=== PATIENT | female | born 1960 | race Caucasian/White ===

== ENCOUNTER → 2018-06-23 08:51 | Outpatient (CLI) | payer OTHER, SELFPAY ==
[2018-06-23 09:52] LABS: Hematocrit 39.5 % (36-46); Hemoglobin 13.3 g/dL (12.0-16.0); Mean Corpuscular HGB Conc 33.8 % (30-36); Mean Corpuscular Hemoglobin 31.8 PG (26-34); Mean Corpuscular Volume 94.3 fL (80-100); Platelet Count 404 X10^3/uL (150-400); Red Blood Cell Count 4.19 X10^6/uL (4.0-5.2); Red Cell Distribution Width 12.9 % (11.6-14.8); White Blood Cell Count 5.4 X10^3/uL (4.5-11.0)
[2018-06-23 10:05] LABS: Neutrophils Absolute Manual 2322 /uL (3000-5900); RBC Morphology Normal Morphology; Total Cells Counted 100
[2018-06-23 11:46] LABS: HEMOLYSIS < 15 (0-50); Iron 117 ug/dL (37-170)
[2018-06-23 11:58] LABS: Percent Iron Saturation 38 % (15-50); Total Iron Binding Capacity 308 ug/dL (265-497); Transferrin 243 mg/dL (206-381)
[2018-06-26 14:39] LABS: Fecal Immunochemical Test NOT DETECTED
== END ==
PROVIDERS: PCP Family Medicine; Visit Provider Family Medicine
DX: D64.9 Anemia, unspecified (principal); Z78.9 Other specified health status
CPT/HCPCS: 36415; 82274; 83540; 83550; 85025

== ENCOUNTER → 2018-10-09 09:36 | Outpatient (CLI) | payer OTHER, SELFPAY ==
[2018-10-09 10:55] LABS: Cholesterol 172 mg/dL (140-199); Glucose 82 mg/dL (70-100); HDL Cholesterol 37 mg/dL (40-60); LDL Cholesterol Calculated 119 mg/dL (<100); Triglycerides 78 mg/dL (35-150)
== END ==
PROVIDERS: PCP Family Medicine; Visit Provider Family Medicine
DX: Z13.220 Encounter for screening for lipoid disorders (principal); Z13.1 Encounter for screening for diabetes mellitus
CPT/HCPCS: 36415; 80061; 82947

== ENCOUNTER → 2019-01-28 13:18 | Outpatient (CLI) | payer OTHER, SELFPAY ==
--- NOTE | 2019-01-28 13:19 | DI.RAD.S_ITS ---
PROCEDURE: XR KNEE RT 3V INDICATIONS: medial knee pain TECHNIQUE: 3 views of the knee were acquired. COMPARISON: None. FINDINGS: Bones: No fractures or dislocations. No suspicious bony lesions. There is mild tricompartmental knee joint degeneration. Soft tissues: No joint effusion. No suspicious soft tissue calcifications. IMPRESSION: Mild degenerative joint disease. Dictated by: Bhavani Ho M.D. on 01/28/2019 at 17:29 Approved by: Bhavani Ho M.D. on 01/28/2019 at 17:30
--- NOTE | 2019-01-28 13:19 | DI.RAD.S_ITS ---
PROCEDURE: XR HAND LT MIN 3V INDICATIONS: DIP > PIP pain TECHNIQUE: 3 views of the hand(s) acquired. COMPARISON: None. FINDINGS: Bones: No fractures or dislocations. Carpal bones are normally aligned. No suspicious bony lesions. Soft tissues: No suspicious soft tissue calcifications. IMPRESSION: No trauma found. Minimal degenerative osteophytic thinning of the joint spaces over the distal interphalangeal joints is present. Dictated by: Jad Hdz M.D. on 01/28/2019 at 14:36 Approved by: Jad Hdz M.D. on 01/28/2019 at 14:36
--- NOTE | 2019-01-28 13:19 | DI.RAD.S_ITS ---
PROCEDURE: XR HAND RT MIN 3V INDICATIONS: DIP>PIP pain TECHNIQUE: 3 views of the hand(s) acquired. COMPARISON: [facility] [place], [place], XR FOOT 3+ VIEWS LEFT, 09/10/2018, 15:58. FINDINGS: Bones: No fractures or dislocations. Carpal bones are normally aligned. No suspicious bony lesions. Minimal diffuse interphalangeal joint narrowing. No erosions. Soft tissues: No suspicious soft tissue calcifications. IMPRESSION: Minimal diffuse interphalangeal joint degeneration. Dictated by: Luis NAYAK Interpreted: Jad Hdz MD on 01/28/2019 at 15:55 Approved by: Jad Hdz M.D. on 01/28/2019 at 20:16
== END ==
PROVIDERS: PCP Family Medicine; Visit Provider Family Medicine
DX: M19.041 Primary osteoarthritis, right hand (principal); M17.11 Unilateral primary osteoarthritis, right knee; M19.042 Primary osteoarthritis, left hand; M25.561 Pain in right knee
CPT/HCPCS: 73130; 73562

== ENCOUNTER → 2019-09-10 16:14 | Outpatient (CLI) | payer OTHER, SELFPAY ==
--- NOTE | 2019-09-10 16:18 | DI.US.S_ITS ---
PROCEDURE: US ABDOMEN COMPLETE INDICATIONS: ABD PAIN TECHNIQUE: Real-time scanning was performed of the abdominal and retroperitoneal organs, with image documentation. COMPARISON: None. FINDINGS: Liver: Liver is normal in size and homogeneous in echotexture. Gallbladder: Gallbladder within normal limits Biliary ducts: Intrahepatic bile ducts are non-dilated. Extrahepatic bile duct caliber measures 4 mm. Normal is 6-7 mm or less in diameter, or 10 mm or less post-cholecystectomy. Pancreas: Visualized portions of the pancreas are sonographically normal. However, the head and tail are not well-seen Spleen: Spleen is normal in size and homogeneous in echotexture. Kidneys: Kidneys are normal in size and echotexture. Right kidney measures 10.2 cm long; left kidney measures 11.2 cm long. No hydronephrosis or nephrolithiasis. No solid masses. Aorta: Visualized aorta is normal in caliber at less than 3 cm. in the mid aorta is not well-visualized Iliacs: Not well-visualized sonographically IVC: Intrahepatic inferior vena cava is patent. Miscellaneous: No free abdominal fluid. IMPRESSION: Normal appearance of the gallbladder. Grossly unremarkable examination as above Dictated by: Negrito Martinez M.D. on 09/10/2019 at 17:54 Approved by: Negrito Martinez M.D. on 09/10/2019 at 17:55
== END ==
PROVIDERS: PCP Family Medicine; Referring Provider Family Medicine; Visit Provider Family Medicine
DX: R10.11 Right upper quadrant pain (principal)
CPT/HCPCS: 76700

== ENCOUNTER → 2019-12-24 15:09 | Outpatient (CLI) | payer OTHER, SELFPAY ==
[2019-12-25 10:20] LABS: SARS CoV19 IgG Negative (Negative)
[2019-12-26 14:43] LABS: SARS CoV19 IgA Negative (Negative)
[2019-12-27 14:40] LABS: SARS-CoV19- IgM Negative (Negative)
== END ==
PROVIDERS: PCP Family Medicine; Referring Provider Family Medicine; Visit Provider Family Medicine
DX: Z11.59 Encounter for screening for other viral diseases (principal)
CPT/HCPCS: 36415; 86769

== ENCOUNTER → 2022-07-05 09:01 | Outpatient (CLI) | payer OTHER, SELFPAY ==
[2022-07-05 10:55] LABS: Cholesterol 234 mg/dL (140-199); Glucose 98 mg/dL (80-110); HDL Cholesterol 43 mg/dL (40-60); LDL Cholesterol Calculated 173 mg/dL (<100); Triglycerides 91 mg/dL (35-150)
== END ==
PROVIDERS: PCP Family Medicine; Referring Provider Family Medicine; Visit Provider Family Medicine
DX: Z13.1 Encounter for screening for diabetes mellitus (principal)
CPT/HCPCS: 36415; 80061; 82947

== ENCOUNTER → 2022-07-13 09:13 | Outpatient (CLI) | payer OTHER, SELFPAY ==
--- NOTE | 2022-07-13 09:14 | DI.MG.S_ITS ---
BILATERAL DIGITAL SCREENING MAMMOGRAM 3D/2D WITH CAD: 07/13/2022 Comparison is made to exams dated: 07/06/2018 mammogram, 01/02/2015 mammogram, and 10/08/2013 mammogram - [facility]. Both breasts are heterogeneously dense, which may obscure small masses (category c / 51-75% glandular tissue). Current study was also evaluated with a Computer Aided Detection (CAD) system. No significant masses, calcifications, or other findings are seen in either breast. There has been no significant interval change. IMPRESSION: NEGATIVE There is no mammographic evidence of malignancy. A 1 year screening mammogram is recommended. Based on the Tyrer Cuzick model (a risk assessment model) the patient's lifetime risk is 12.3% and her 10 year risk is 5.2%. According to the ACR, ACS, and NCCN guidelines, an annual breast MRI exam along with mammogram is recommended if the patient's lifetime risk is 20% or greater. This exam was interpreted at Station ID: [id number]. NOTE: For mammograms, a report in lay terms will be sent to the patient. Approximately 15% of breast malignancies will not be visualized mammographically. In the management of a palpable breast mass, a negative mammogram must not discourage biopsy of a clinically suspicious lesion. Electronically Signed By: Apolinar herrmann/jayden:07/17/2022 08:45:45 letter sent: Normal Exam ACR BI-RADS Category 1: Negative 3341F
[2022-07-15 13:37] LABS: Fecal Immunochemical Test Negative (Negative)
== END ==
PROVIDERS: PCP Family Medicine; Referring Provider Family Medicine; Visit Provider Family Medicine
DX: Z12.31 Encounter for screening mammogram for malignant neoplasm of breast (principal); Z12.11 Encounter for screening for malignant neoplasm of colon
CPT/HCPCS: 77063; 77067; 82274

== ENCOUNTER → 2022-07-30 13:04 | Outpatient (CLI) | payer OTHER, SELFPAY ==
--- NOTE | 2022-07-30 13:06 | DI.RAD.S_ITS ---
PROCEDURE: XR ELBOW RT MIN 3V INDICATIONS: R elbow pain lateral epicondyle, olecranon TECHNIQUE: 3 views of the elbow were acquired. COMPARISON: None. FINDINGS: Bones: No fractures or dislocations. No suspicious bony lesions. Soft tissues: No elbow joint effusion. No suspicious soft tissue calcifications. IMPRESSION: No visualized acute fracture or dislocation. However, if clinical concern and/or pain persist, short interval imaging followup in 7-10 days is recommended, as occult injury cannot be definitively excluded. Dictated by: Roxanne Mckinley M.D. on 07/30/2022 at 16:26 Approved by: Roxanne Mckinley M.D. on 07/30/2022 at 16:26
== END ==
PROVIDERS: PCP Family Medicine; Referring Provider Physician Assistant; Visit Provider Physician Assistant
DX: S59.901A Unspecified injury of right elbow, initial encounter (principal); M25.521 Pain in right elbow; X58.XXXA Exposure to other specified factors, initial encounter
CPT/HCPCS: 73080

== ENCOUNTER 2022-09-25 08:21 | Day surgery (SDC) | payer OTHER, SELFPAY ==
[2022-09-17 10:35] VITALS: BMI 22.9
[2022-09-25] VITALS (7 sets, daily range): BP systolic 97–132; BP diastolic 49–78; PULSE 70–90; RESP 14–23; TEMP 36–36.3; O2SAT 96–100; BMI 22.3
[2022-09-25] MEDS: LACTATED RINGERS 1,000 ML 42 ML IV (08:41)
--- NOTE | 2022-09-25 09:28 | PM.PREOP ---
Pre-operative Note Interval Note History & Physical reviewed/Exam performed by Physician: Yes Changes to H&P: No
--- NOTE | 2022-09-25 09:36 | P.HP_ITS ---
History of Present Illness History of Present Illness Date Patient Seen: 09/25/22 Time Patient Seen: 09:36 Chief complaint: SDC Narrative: 62-year-old here for an elective open umbilical repair for a small reducible symptomatic umbilical hernia. Please refer to the H and P from July 2022 for further detail. Patient History Medical History (Updated 09/17/22 @ 10:38 by Haily Quintero RN) Arthritis Asthma Eczema Elevated cholesterol Exercise induced bronchospasm Food allergy Hearing loss Heart murmur Hypoglycemia Surgical History (Updated 09/17/22 @ 10:38 by Haily Quintero RN) Hx of dilation and curettage (1990) [place] teeth removed (1978) Family & Social History Family History Father Aspiration into airway Mother Osteoarthritis of hands, bilateral Idiopathic polyneuropathy Non-melanoma skin cancer Grandmother Colon cancer Congestive heart failure Grandfather Sepsis Grandfather Myocardial infarction Prostate cancer Dementia Grandmother CVA (cerebral vascular accident) Social History: household members spouse lives independently Yes caregiver/support person No Tobacco & Substance use: Smoking Status Never smoker alcohol intake current alcohol intake frequency a few times a month Substance Use Type does not use Meds Home Medications and Allergies Home Medications Medication Instructions Recorded Confirmed Type albuterol sulfate 90 mcg/actuation 2 puff inhalation QID PRN 04/24/22 09/25/22 Rx aerosol inhaler shortness of breath or wheezing #18 grams desonide 0.05 % topical ointment 1 applic topical BID #60 grams 04/24/22 09/25/22 Rx wrist/arm splint #1 ea 08/19/22 Rx acetaminophen 325 mg capsule 650 mg PO QID PRN pain #60 caps 09/25/22 Rx (Tylenol) ibuprofen 200 mg tablet 400 mg PO Q6H #60 tabs 09/25/22 Rx tramadol 50 mg tablet 50 mg PO Q6H PRN pain #10 tabs 09/25/22 Rx Allergies Allergy/AdvReac Type Severity Reaction Status Date / Time hazelnut Allergy Mild Verified 09/25/22 08:41 Sulfa (Sulfonamide Allergy Unknown Verified 09/25/22 08:41 Antibiotics) [SULFA (SULFONAMIDE ANTIBIOTICS)] Opioids - Morphine Analogues AdvReac Mild Nausea Verified 09/25/22 08:41 Exam Vital Signs (past 8 hours): - 09/25/22 08:49 Temperature 97.4 F L Pulse Rate 90 Respiratory Rate 18 Blood Pressure 132/78 Pulse Oximetry 100 Oxygen Delivery Method Room Air Oxygen Delivery Method Room Air Narrative Exam Narrative: General adult woman alert oriented no acute distress Abdomen soft nontender nondistended. Umbilical hernia marked my initials. Assessment & Plan Assessment and plan (1) Umbilical hernia: Qualifiers: Obstruction and gangrene presence: without obstruction or gangrene Qualified Code(s): K42.9 - Umbilical hernia without obstruction or gangrene Status: Acute Assessment & Plan narrative: 62-year-old woman with a symptomatic reducible umbilical hernia here for elective open umbilical hernia repair. Overview of the operation was again discussed with the patient. Operative risks including bleeding, infection, reoccurence were discussed. Her questions have been answered and she is in agreement with this plan. Time Spent With Patient Critical Care time: I spent a total of [] minutes of critical care time on this patient's care today; this time is exclusive of procedural time.
[2022-09-25] MEDS: CEFAZOLIN 2 GM/100 ML PREMIX 100 ML IV (09:50)
--- NOTE | 2022-09-25 10:00 | SUR.OPER ---
Supine on padded OR bed, head on pillow, arms secured on padded arm boards at <90 degrees abduction, legs uncrossed, safety belt at thigh, tape over blanket over lower legs.
[2022-09-25] MEDS: BUPIVACAINE 0.25% (PF) VIAL 30 ML INJ (10:09)
--- NOTE | 2022-09-25 10:28 | PM.OP.1 ---
Operative Date/Time/Diagnoses Date of procedure: 09/25/22 Time of procedure: 10:28 Pre-op diagnosis: umbilical hernia Post-op diagnosis: same Procedure & Clinicians Procedure: open umbilical hernia repair Same procedure as scheduled: Yes Indications: symptomatic reducible umbilical hernia Surgeon: Dilan Fu Anesthesia Type: General Operative Notes Findings: 1 cm fascial defect containing omentum Estimated Blood Loss (mL): 10 Procedure in detail: Patient was brought to the operating room placed supine on the table. Bilateral lower extremity compression devices were applied. General anesthesia was induced and they were intubated with an endotracheal tube. They received 2 g of Ancef prior to skin incision. They were prepped and draped in sterile fashion. A time-out was performed. A curvilinear incision was made inferior to the umbilicus. The subcutaneous tissues were divided. The umbilical hernia was identified and the hernia sac was dissected off the umbilical skin and circumferentially off of the fascia defect. The hernia sac was sharply opened and contained viable omentum. The omentum was reduced back into the abdomen. Using blunt dissection I carefully carefully freed the hernia sac from beneath the fascia defect. The fascia defect was 1.0 cm in maximal diameter. Given the small diameter of the umbilical fascial defect no mesh was used. A figure 8 of Ethibond was used to reapproximate the fascia.The umbilical skin was tacked to the subcutaneous tissues and then the remainder of the subcutaneous tissues were reapproximated using 3 0 Vicryl. The skin closed with 4 0 Monocryl followed by the application of Dermabond. Sponge instrument count at the end of the operation was correct. Patient tolerated procedure well was extubated and transferred to postoperative care unit in stable condition. Complications: none Post-operative Condition: stable Disposition: same day surgery
== END 2022-09-25 11:08 | disposition home or self-care (01) ==
PROVIDERS: PCP Family Medicine; Referring Provider Surgery; Visit Provider Surgery
PROC: (CPT 49591; principal; 2022-09-25 09:45)
DX: K42.9 Umbilical hernia without obstruction or gangrene (principal)
CPT/HCPCS: 49591; 82962; J0690; J1100; J1885; J2405; J2704; J3010

== ENCOUNTER → 2023-01-03 10:35 | Outpatient (CLI) | payer OTHER, SELFPAY ==
[2023-01-03 11:27] LABS: Cholesterol 168 mg/dL (140-199); HDL Cholesterol 34 mg/dL (40-60); LDL Cholesterol Calculated 115 mg/dL (<100); Triglycerides 95 mg/dL (35-150)
== END ==
PROVIDERS: PCP Family Medicine; Referring Provider Family Medicine; Visit Provider Family Medicine
DX: E78.5 Hyperlipidemia, unspecified (principal)
CPT/HCPCS: 36415; 80061

== ENCOUNTER → 2023-06-24 08:22 | Outpatient (CLI) | payer OTHER, SELFPAY ==
[2023-06-24 09:20] LABS: Cholesterol 179 mg/dL (140-199); HDL Cholesterol 36 mg/dL (40-60); LDL Cholesterol Calculated 121 mg/dL (<100); Triglycerides 112 mg/dL (35-150)
== END ==
PROVIDERS: PCP Family Medicine; Referring Provider Family Medicine; Visit Provider Family Medicine
DX: E78.5 Hyperlipidemia, unspecified (principal)
CPT/HCPCS: 36415; 80061

== ENCOUNTER → 2023-08-16 08:58 | Outpatient (CLI) | payer OTHER, SELFPAY ==
--- NOTE | 2023-08-16 | DI.MG.S_ITS ---
BILATERAL DIGITAL SCREENING MAMMOGRAM 3D/2D WITH CAD: 08/16/2023 CLINICAL: Routine screening. Comparison is made to exams dated: 07/13/2022 mammogram - [facility], 07/06/2018 mammogram, and 01/02/2015 mammogram - [facility]. Both breasts are heterogeneously dense, which may obscure small masses (category c / 51-75% glandular tissue). Current study was also evaluated with a Computer Aided Detection (CAD) system. No significant masses, calcifications, or other findings are seen in either breast. There has been no significant interval change. IMPRESSION: NEGATIVE There is no mammographic evidence of malignancy. A 1 year screening mammogram is recommended. Based on the Tyrer Cuzick model (a risk assessment model) the patient's lifetime risk is 11.9% and her 10 year risk is 5.2%. According to the ACR, ACS, and NCCN guidelines, an annual breast MRI exam along with mammogram is recommended if the patient's lifetime risk is 20% or greater. This exam was interpreted at Station ID: [id number]. NOTE: For mammograms, a report in lay terms will be sent to the patient. Approximately 15% of breast malignancies will not be visualized mammographically. In the management of a palpable breast mass, a negative mammogram must not discourage biopsy of a clinically suspicious lesion. Electronically Signed By: Apolinar herrmann/jayden:08/18/2023 07:26:57 letter sent: Normal Exam ACR BI-RADS Category 1: Negative 3341F
== END ==
LOC: MAMMO 08:59
PROVIDERS: PCP Family Medicine; Referring Provider Family Medicine; Visit Provider Family Medicine
DX: Z12.31 Encounter for screening mammogram for malignant neoplasm of breast (principal); R92.333 Mammographic heterogeneous density, bilateral breasts
CPT/HCPCS: 77063; 77067

== ENCOUNTER → 2024-09-30 12:03 | Outpatient (CLI) | payer OTHER, SELFPAY ==
--- NOTE | 2024-09-30 12:08 | DI.RAD.S_ITS ---
PROCEDURE: XR DEXA AXIAL SKELETON INDICATIONS: screening osteoporosis COMPARISON: None. FINDINGS: Lumbar Spine: Bone mineral density 0.57 g/cm2, T score -4.3. Left Femoral Neck: Bone mineral density 0.55 g/cm2, T score -2.7. Left Hip: Bone mineral density 0.59 g/cm2, T score -2.9. Fracture Risk Calculation (when applicable): 10-year fracture risk of a major osteoporotic fracture 13 percent and of a hip fracture 2.9 percent. (T score greater or equal to -1.0 to: NORMAL) (T score from -1.1 to -2.4: OSTEOPENIA) (T score less than or equal to -2.5: OSTEOPOROSIS) IMPRESSION: 1. Osteoporosis of the lumbar spine. 2. Osteoporosis of the left hip and femoral neck. Follow-up guidelines as follows: Osteoporosis: Consider a repeat DEXA and Vertebral Fracture Assessment (VFA) exam in 2 years or sooner if medically necessary, to reassess this patient's status. Osteopenia: Consider a repeat DEXA in 2-3 years to reassess this patient's status, or if there is a new clinical indication. Normal: Consider a repeat DEXA in 5 years or sooner, or if there is a new clinical indication. All treatment decisions require clinical judgment and consideration of individual patient factors, including patient preferences, comorbidities, previous drug use, risk factors not captured in the FRAX model (e.g., frailty, falls, vitamin D deficiency, increased bone turnover, interval significant decline in bone density ) and possible under- or over-estimation of fracture risk by FRAX. In addition, the NOF Guide recommends that FDA-approved medical therapies be considered in postmenopausal women and men age >= 50 years with a: * Hip or vertebral (clinical or morphometric) fracture * T-score of <=-2.5 at the spine or hip * Ten-year fracture probability by FRAX of >= 3% for hip fracture or >=20% for major osteoporotic fracture. Dictated by: Shawn Cheng M.D. on 09/30/2024 at 14:11 Approved by: Shawn Cheng M.D. on 09/30/2024 at 14:13
== END ==
PROVIDERS: PCP Family Medicine; Referring Provider Family Medicine; Visit Provider Family Medicine
DX: Z13.820 Encounter for screening for osteoporosis (principal); M81.0 Age-related osteoporosis without current pathological fracture
CPT/HCPCS: 77080

== ENCOUNTER → 2024-10-13 08:17 | Outpatient (CLI) | payer OTHER, SELFPAY ==
--- NOTE | 2024-10-13 08:20 | DI.MG.S_ITS ---
MM screening mammo BI: 10/13/2024. BI-RADS: 1 CLINICAL: 64-year old female for bilateral screening mammogram. Tyrer-Cuzick lifetime risk of 7.9%. No personal or first-degree family history of breast cancer. PRIOR EXAMS 08/16/2023, 07/13/2022, 07/06/2018, 01/02/2015. MAMMOGRAPHY TECHNIQUE: 2D and 3D (tomosynthesis) digital mammographic views obtained, with additional images as needed for full coverage. Current study was also evaluated with a Computer Aided Detection (CAD) system. DENSITY C. The breasts are heterogeneously dense, which may obscure small masses. MAMMOGRAPHY FINDINGS Bilateral: No suspicious mass, asymmetry, microcalcification, or other abnormality seen. No significant change from comparison. IMPRESSION: * No evidence of malignancy. RECOMMENDATIONS Bilateral * Annual screening mammography. OVERALL ASSESSMENT CATEGORY BI-RADS-1: Negative. The [employer] recommends annual screening mammography beginning at age 40 for women with average risk of breast cancer. ELECTRONICALLY SIGNED: Tiffanie Pruitt M.D. on 10/13/2024 at 05:00:36 PM PT Interpreting Station ID: [id number]
[2024-10-13 09:42] LABS: Alanine Aminotransferase 36 IU/L (<35); Albumin 4.6 g/dL (3.5-5.0); Albumin Globulin Ratio 1.6 (1.0-2.8); Alkaline Phosphatase 78 U/L (38-126); Aspartate Aminotransferase 41 IU/L (14-36); BUN Creatinine Ratio 20.3 (6-22); Bilirubin Total 0.6 mg/dL (0.2-1.3); Blood Urea Nitrogen 15 mg/dL (7-17); Calcium 9.8 mg/dL (8.4-10.2); Carbon Dioxide 28 mmol/L (22-32); Chloride 101 mmol/L (98-107); Cholesterol 208 mg/dL (140-199); Estimated Glomerular Filt Rate > 60 mL/min (>60); Globulin 2.8 g/dL (1.7-4.1); Glucose 92 mg/dL (80-110); HDL Cholesterol 40 mg/dL (40-60); HEMOLYSIS < 15 (0-50); LDL Cholesterol Calculated 149 mg/dL (<100); Potassium 4.3 mmol/L (3.4-5.1); Sodium 138 mmol/L (137-145); Total Protein 7.4 g/dL (6.3-8.2); Triglycerides 95 mg/dL (35-150)
[2024-10-14 11:12] LABS: Fecal Immunochemical Test Negative (Negative)
== END ==
LOC: MAMMO 08:18
PROVIDERS: PCP Family Medicine; Referring Provider Family Medicine; Visit Provider Family Medicine
DX: Z12.31 Encounter for screening mammogram for malignant neoplasm of breast (principal); R92.333 Mammographic heterogeneous density, bilateral breasts; M81.0 Age-related osteoporosis without current pathological fracture; Z13.220 Encounter for screening for lipoid disorders; Z12.11 Encounter for screening for malignant neoplasm of colon
CPT/HCPCS: 36415; 77063; 77067; 80053; 80061; 82274; 82306

== ENCOUNTER → 2024-11-10 09:41 | Outpatient (CLI) | payer OTHER, SELFPAY ==
[2024-11-10 10:38] LABS: Alanine Aminotransferase 39 IU/L (<35); Albumin 4.6 g/dL (3.5-5.0); Albumin Globulin Ratio 1.8 (1.0-2.8); Alkaline Phosphatase 72 U/L (38-126); Aspartate Aminotransferase 39 IU/L (14-36); Bilirubin Total 0.5 mg/dL (0.2-1.3); Blood Urea Nitrogen 18 mg/dL (7-17); Calcium 9.7 mg/dL (8.4-10.2); Carbon Dioxide 30 mmol/L (22-32); Chloride 102 mmol/L (98-107); Estimated Glomerular Filt Rate > 60 mL/min (>60); Globulin 2.5 g/dL (1.7-4.1); Glucose 86 mg/dL (70-99); HEMOLYSIS < 15 (0-50); Potassium 4.4 mmol/L (3.4-5.1); Sodium 140 mmol/L (137-145); Total Protein 7.1 g/dL (6.3-8.2)
[2024-11-11 00:07] LABS: HBsAg Screen Negative (Negative); Hepatitis A Antibody IgM Negative (Negative); Hepatitis B Core Antibody IgM Negative (Negative); Hepatitis C Antibody Non Reactive (Non Reactive)
== END ==
PROVIDERS: PCP Family Medicine; Referring Provider Family Medicine; Visit Provider Family Medicine
DX: Z11.59 Encounter for screening for other viral diseases (principal); Z79.899 Other long term (current) drug therapy
CPT/HCPCS: 36415; 80053; 80074

== ENCOUNTER → 2024-12-30 13:41 | Outpatient (CLI) | payer OTHER, SELFPAY ==
--- NOTE | 2025-01-03 15:28 | DIET.OUTPTC ---
Dietary Outpatient Consult Consult Date:12/30/24 Assessment:? 64 y F referred to dietitian for Abnormal levels of other serum enzymes, Abnormal finding of blood chemistry, unspecified, and osteoporosis Pt wanting to review labs (cholesterol) and nutrition for osteoporosis and protein intake per day. In October started going to PT and doing weight based exercises. Strong understanding of nutrition, strong understanding finding reliable sources on internet. Non-anaphylactic reactions to tree nuts, stone fruit, and peanuts Diet Recall: B-oats with water, 1/2c berries, hemp seeds 1 tbsp, zahida crackers, 1 c coffee L-norman and cheese burritos or grazing on hummus and cracker, fruit, smoothies with yogurt D-baked potato med, salmon, 1 c broccoli (or similar kvzqkav-biky-cqr meal) Sometimes protein bar Fluids:water 64-72 oz Supplements: [employer] brand tummeric, 2 600mg calcium and vit D ?Wt: 135-140 lb?? BMI:?? UBW: Activity: Pertinent Labs: Recently went to [place] for 9 weeks and associates that with elevated chol and LDL. Usually carefully monitors sat fat and fiber intake. Doesn't go over 10 g sat fat usually. Aims for 25-30 g fiber daily. Nutrition Diagnosis:? Interventions:? Discussed and provided appropriate resources on the following: - Goals: - EER:? Monitoring/Evaluations:? F/u PRN Electronically Signed by: Keyla Hilliard Clinical Dietitian [address] [address]
--- NOTE | 2025-01-03 15:52 | DIET.OUTPTC ---
Dietary Outpatient Consult Consult Date:12/30/24 Assessment:? 64 y F referred to dietitian for Abnormal levels of other serum enzymes, Abnormal finding of blood chemistry, unspecified, and osteoporosis Pt wanting to review labs (cholesterol) and nutrition for osteoporosis and protein intake per day. Has heard needs to get 140 g protein per day. In October started going to PT and doing weight based exercises. Strong understanding of nutrition, strong understanding finding reliable sources on internet. Non-anaphylactic reactions to tree nuts, stone fruit, and peanuts Diet Recall: B-oats with water, 1/2c berries, hemp seeds 1 tbsp, zahida crackers, 1 c coffee L-norman and cheese burritos or grazing on hummus and cracker, fruit, smoothies with yogurt D-baked potato med, salmon, 1 c broccoli (or similar kvhgcxc-pore-yva meal) Sometimes protein bar [employer] [place] pal is reaching 70-90 g protein Fluids:water 64-72 oz Supplements: [employer]co brand tummeric, 2 600mg calcium and vit D ?Ht 5 ft 5 in Wt: 135-140 lb?? BMI:?22.5-23.3? Activity: PT 1x/wk 60 min PT homework 5x/wk- changing up muscle groups and doing weights/resistance/balance workouts 30-45 mins/day Hiking 2-4x/wk 5-8 miles Always aims for 10k steps Takes a rest day Pertinent Labs: Recently went to [place] for 9 weeks and associates that with elevated chol and LDL. Usually carefully monitors sat fat and fiber intake. Doesn't go over 10 g sat fat usually. Aims for 25-30 g fiber daily. Nutrition Diagnosis:? Altered nutrition related lab values (cholesterol and LDL) r/t higher than normal saturated fat intake during long vacation aeb dietary recall when on vacation, pt report Interventions:? Discussed and provided appropriate resources on the following: -Protein needs based on age and activity -Lab meanings and results -Nutrition therapy for osteoporosis including: calcium, vit D and supporting vitamins/minerals of Mg and Vit K, dietary patterns like Mediterranean, lower sodium intake <2000mg/day, supplement types and amounts printed and provided [facility] handout on osteoporosis Goals: -70-90 g protein is appropriate (1-1.5 g/kg) -No further goals, pt already doing all potential goals and has transitioned back to pre-vacation eating style Monitoring/Evaluations:? F/u PRN Electronically Signed by: Keyla Hilliard Clinical Dietitian [address] [id number]
== END ==
PROVIDERS: PCP Family Medicine; Referring Provider Family Medicine
DX: R74.8 Abnormal levels of other serum enzymes (principal); R79.9 Abnormal finding of blood chemistry, unspecified; M81.0 Age-related osteoporosis without current pathological fracture; Z68.22 Body mass index [BMI] 22.0-22.9, adult
CPT/HCPCS: 97802